=== PATIENT | male | born 1995 ===

== ENCOUNTER → 2022-09-26 12:56 | Outpatient (BNVA) | payer OTHER, SELFPAY | PROVIDERS: Referring Provider Internal Medicine; Visit Provider Orthopaedic Surgery | DX: M25.562 Pain in left knee (principal) | CPT/HCPCS: 99203 ==

== ENCOUNTER 2022-11-24 15:13 | Outpatient (CLI) | payer OTHER, SELFPAY ==
--- NOTE | 2022-11-24 15:15 | MR_ITS ---
WS: [id number] MRI LEFT KNEE NONCONTRAST TECHNIQUE: Axial PD, coronal PD fat sat, coronal PD, sagittal PD, and sagittal PD fat-sat images obta ined. CLINICAL INFORMATION: knee pain COMPARISON: None. FINDINGS: Distal quadriceps and patella tendons are intact. Normal ACL and PCL. No acute appearing meniscal tea rs. Normal medial and lateral meniscus. Normal bone marrow signal in the femoral condyles and tibial plateau. Mild chondromalacia patella. Normal medial and lateral patellar retinaculum. Normal medial a nd lateral collateral ligaments. Normal popliteal fossa. MR/MR knee LT wo con* [id number] IMPRESSION: 1. Normal ACL and PCL. 2. No acute appearing meniscal tears. 3. Mild chondromalacia patella. 4. No other suspicious findings. Outbridge grading: grade I: focal areas of hyperintensity with normal contour
== END 2022-11-24 15:14 | disposition home or self-care (01) ==
LOC: RAD 15:14
PROVIDERS: Visit Provider Orthopaedic Surgery
DX: M22.42 Chondromalacia patellae, left knee (principal)
CPT/HCPCS: 73721